=== PATIENT | male | born 1975 | race Caucasian/White ===

== ENCOUNTER 2024-02-04 12:57 | Emergency (ER) | payer OTHER ==
[~2024-02-04] VITALS: Ht 172.7 cm; Wt 73.0 kg
[2024-02-04 13:07] VITALS: TEMP 98.6; O2SAT 98
[2024-02-04] MEDS: SODIUM CHLORIDE 0.9% 1,000 ML IV ONE ×2 (14:02→15:41)
[2024-02-04 14:06] LABS: BASOPHILS % 0.3 % (0.0-2.0); EOSINOPHILS % 1.2 % (0.0-5.0); HEMOGLOBIN. 11.5 g/dL (14.0-18.0); LYMPHOCYTES % 15.3 % (20.0-50.0); MEAN CORPUSCULAR HEMOGLOBIN 32.4 pg (28.0-32.0); MEAN CORPUSCULAR HGB CONC 34.7 g/dL (31.0-37.0); MEAN CORPUSCULAR VOLUME 93.5 fL (80.0-94.0); MEAN PLATELET VOLUME 7.6 fl (7.4-10.4); MONOCYTES % 7.7 % (2.0-8.0); NEUTROPHILS % 75.5 % (40.0-76.0); PLATELET 162 x1000/uL (130-400); RED BLOOD CELL COUNT 3.54 mill/uL (4.7-6.1); RED CELL DISTRIBUTION WIDTH 13.7 % (11.6-14.6); WHITE BLOOD COUNT 7.8 x1000/uL (4.5-11.0)
[2024-02-04 14:14] LABS: CHLORIDE 111 mEq/L (98-107); POTASSIUM 3.6 mEq/L (3.5-5.1); SODIUM 144 mEq/L (136-145)
[2024-02-04 14:15] LABS: CALCIUM 8.6 mg/dL (8.7-10.4); CARBON DIOXIDE 27 mEq/L (21-32)
[2024-02-04 14:18] LABS: PROTHROMBIN TIME 10.9 sec (9.6-11.0)
[2024-02-04 14:20] LABS: CREATININE 1.2 mg/dL (0.6-1.3); GLUCOSE 112 mg/dL (70-105); UREA NITROGEN BLOOD 14 mg/dL (9-23)
[2024-02-04 14:21] LABS: ETHANOL BLOOD 187 mg/dL (<10)
[2024-02-04 14:22] LABS: TROPONIN I HIGH SENSITIVITY < 4 ng/L (3.0-53)
[2024-02-04] MEDS ORDERED: AMOX1TAB16 MT (15:34)
[2024-02-04] MEDS ORDERED: AZIT250T12 MT (15:34)
[2024-02-04 16:15] VITALS: BP 99/74; PULSE 91; RESP 15; O2SAT 99
== END 2024-02-04 16:17 | disposition home or self-care (01) ==
LOC: ER 12:57
DX: T67.5XXA Heat exhaustion, unspecified, initial encounter (principal); I10 Essential (primary) hypertension; F10.129 Alcohol abuse with intoxication, unspecified; I95.9 Hypotension, unspecified; Z79.899 Other long term (current) drug therapy; X58.XXXA Exposure to other specified factors, initial encounter; Y93.89 Activity, other specified; Y92.89 Other specified places as the place of occurrence of the external cause; Y99.8 Other external cause status; Y90.6 Blood alcohol level of 120-199 mg/100 ml
CPT/HCPCS: 80048; 80320; 83880; 85025; 85610; 84484; 36415; 71045; 93005; 96360; 99285; J7030; Z7610; G0480